=== PATIENT | female | born 1935 | race Caucasian/White ===

== ENCOUNTER 2019-03-30 09:02 | Emergency (ER) | payer OTHER ==
[~2019-03-30] VITALS: Ht 149.9 cm; Wt 68.0 kg
[~2019-03-30 09:02] MED LIST: ATENOLOL25 MG; LISINOPRIL5 MG
[2019-03-30] MEDS ORDERED: TENORMIN50 M1 (09:17)
[2019-03-30] MEDS ORDERED: ASPIR 8181 MG (09:17)
== END 2019-03-30 12:22 | disposition home or self-care (01) ==
LOC: ER
DX: R07.89 Other chest pain (principal)

== ENCOUNTER 2019-09-16 12:27 | Emergency (ER) | payer OTHER ==
[~2019-09-16] VITALS: Ht 157.5 cm; Wt 74.8 kg
[~2019-09-16 12:27] MED LIST changes: +ASPIR 8181 MG; +TENORMIN50 M1
== END 2019-09-16 18:56 | disposition home or self-care (01) ==
LOC: ER 12:27
DX: R10.32 Left lower quadrant pain (principal)

== ENCOUNTER 2021-01-06 20:02 | Emergency (ER) | payer OTHER ==
[~2021-01-06] VITALS: Ht 152.4 cm; Wt 72.6 kg
== END 2021-01-07 03:33 ==
LOC: ER 20:02
DX: I16.0 Hypertensive urgency (principal)

== ENCOUNTER 2021-02-10 19:54 | Emergency (ER) | payer OTHER ==
[~2021-02-10] VITALS: Ht 157.5 cm; Wt 68.0 kg
[2021-02-10] MEDS ORDERED: HYDROCHLOROTH12.5 MG (20:16)
[2021-02-10] MEDS ORDERED: TENORMIN50 M1 (20:16)
[2021-02-10] MEDS ORDERED: VISTARIL50 MG PO (23:37)
[2021-02-10] MEDS ORDERED: BACTRIM DS TAB1 EACH PO (23:37)
== END 2021-02-10 23:48 | disposition home or self-care (01) ==
LOC: ER 19:54
DX: I16.0 Hypertensive urgency (principal); I10 Essential (primary) hypertension; N39.0 Urinary tract infection, site not specified; R42 Dizziness and giddiness; G25.2 Other specified forms of tremor; F41.8 Other specified anxiety disorders

== ENCOUNTER 2021-02-14 11:02 | Emergency (ER) | payer OTHER ==
[~2021-02-14] VITALS: Ht 152.4 cm; Wt 61.2 kg
[~2021-02-14 11:02] MED LIST changes: +BACTRIM DS TAB1 EACH PO; +HYDROCHLOROTH12.5 MG; +VISTARIL50 MG PO
== END 2021-02-14 14:30 | disposition home or self-care (01) ==
LOC: ER 11:02
DX: M25.561 Pain in right knee (principal); M25.562 Pain in left knee; F41.8 Other specified anxiety disorders

== ENCOUNTER 2022-06-12 09:46 | Emergency (ER) | payer OTHER ==
[~2022-06-12] VITALS: Ht 154.9 cm; Wt 61.2 kg
== END 2022-06-12 13:04 | disposition home or self-care (01) ==
LOC: ER 09:46
DX: K08.89 Other specified disorders of teeth and supporting structures (principal)

== ENCOUNTER 2022-07-05 08:40 | Outpatient (CLI) | payer OTHER | END 2022-07-05 08:48 | disposition home or self-care (01) | LOC: RAD 08:40 | PROVIDERS: ATTEND Otolaryngology | DX: J32.0 Chronic maxillary sinusitis (principal) ==